=== PATIENT | male | born 1985 | race African-American/Black ===

== ENCOUNTER 2016-05-15 22:10 | Emergency (ER) | payer MEDICARE, OTHER ==
[~2016-05-15 22:10] MED LIST: DEPAKOTE PO
[2016-05-15 22:59] LABS: AMPHETAMINE NEG (NEG); BARBITURATES NEG (NEG); BENZODIAZEPINES NEG (NEG); COCAINE NEG (NEG); MARIJUANA NEG (NEG); OPIATES NEG (NEG); TRICYCLIC ANTIDEPRESSANTS POS (NEG); U METHADONE NEG (NEG)
[2016-05-16 00:31] LABS: DEPAKENE (VALPROIC ACID) 37 ug/mL (50-125)
[2016-05-16 00:33] LABS: ALCOHOL BLOOD <5 mg/dL (0)
== END 2016-05-16 02:33 | disposition home or self-care (01) ==
LOC: CED 22:10
PROVIDERS: Emergency Medicine
DX: S61.012A Laceration without foreign body of left thumb without damage to nail, initial encounter (principal); Z88.8 Allergy status to other drugs, medicaments and biological substances; F32.9 Major depressive disorder, single episode, unspecified; X78.8XXA Intentional self-harm by other sharp object, initial encounter; Y92.009 Unspecified place in unspecified non-institutional (private) residence as the place of occurrence of the external cause
CPT/HCPCS: 80164; 80307; 99283; G0480